=== PATIENT | female | born 2000 | race Caucasian/White ===

== ENCOUNTER 2021-09-11 12:57 | Emergency (ER) | payer OTHER ==
[~2021-09-11] VITALS: Ht 160 cm; Wt 63.7 kg
[2021-09-11] MEDS ORDERED: HYDROCO/APAP1 TA9 PO (15:49)
[2021-09-11 15:54] VITALS: BP 119/81
== END 2021-09-11 16:06 | disposition home or self-care (01) | DRG 125 ==
LOC: ED 12:57
DX: S00.12XA Contusion of left eyelid and periocular area, initial encounter (principal); S00.03XA Contusion of scalp, initial encounter; S16.1XXA Strain of muscle, fascia and tendon at neck level, initial encounter; S20.212A Contusion of left front wall of thorax, initial encounter; S40.022A Contusion of left upper arm, initial encounter; T14.8XXA Other injury of unspecified body region, initial encounter; Y04.2XXA Assault by strike against or bumped into by another person, initial encounter; Y92.410 Unspecified street and highway as the place of occurrence of the external cause

== ENCOUNTER 2021-10-31 17:27 | Emergency (ER) | payer MEDICAID ==
[2021-10-31] VITALS (12 sets, daily range): BP systolic 88–116; BP diastolic 47–78
[~2021-10-31] VITALS: Ht 160 cm; Wt 66.0 kg
[~2021-10-31 17:27] MED LIST: HYDROCO/APAP1 TA9 PO
[2021-10-31 18:11] LABS: HEMATOCRIT 37.6 % (37.0-47.0); HEMOGLOBIN 12.3 g/dl (12.0-16.0); IMMATURE GRANULOCYTES 0.1 % (0.0-5.0); MEAN CORPUSCULAR HGB 29.8 pG CALC (26.0-32.0); MEAN CORPUSCULAR HGB CONC 32.7 g/dL CAL (32.0-36.0); NEUT# 6.21 thou/uL (2.00-7.15); RED BLOOD COUNT 4.13 mill/uL (4.20-5.60); RED CELL DISTRI WIDTH 12.2 % (11.5-15.5)
[2021-10-31 18:14] LABS: URINE BILIRUBIN - DIPSTICK NEGATIVE (NEGATIVE); URINE BLOOD DIPSTICK LARGE (NEGATIVE); URINE COLOR YELLOW; URINE GLUCOSE - DIPSTICK NEGATIVE (NEGATIVE); URINE KETONE NEGATIVE (NEGATIVE); URINE LEUK ESTERASE NEGATIVE (NEGATIVE); URINE PROTEIN - DIPSTICK TRACE mg/dL (NEG-TRACE); URINE UROBILINOGEN - DIPSTICK 0.2 E.U./dL (0.2)
[2021-10-31 18:20] LABS: URINE NITRITE - DIPSTICK NEGATIVE (Negative)
[2021-10-31 18:31] LABS: URINE SQUAMOUS EPITHELIAL CELL RARE EPI/hpf (0-FEW); URINE WBC 0-2 WBC/hpf (0-5)
[2021-10-31 18:37] LABS: ALBUMIN 3.9 g/dL (3.2-5.0); ALKALINE PHOSPHATASE 73 u/l (38-126); ANION GAP 10 (6-22 (CALC)); BILIRUBIN, TOTAL 0.5 mg/dL (0.0-1.4); BUN 10 mg/dL (7-17); BUN/CREATININE RATIO 17 (12-20 (CALC)); CARBON DIOXIDE 24 mmol/l (22-30); CHLORIDE 105 mmol/l (95-108); CREATININE 0.6 mg/dL (0.5-1.0); GFR FOR AFR.AMER. > 60 ML/MIN (>=60 (CALC)); GFR OTHER RACES > 60 ML/MIN (>=60 (CALC)); LIPASE 28 u/l (23-300); POTASSIUM 3.6 mmol/l (3.5-5.1); SGOT/AST 19 u/l (14-36); SODIUM 136 mmol/l (137-146); TOTAL PROTEIN 6.7 g/dL (6.3-8.2)
[2021-10-31] MEDS ORDERED: ONDANSETRON4 MG PO (21:10)
== END 2021-10-31 22:07 | disposition home or self-care (01) ==
LOC: ED 17:27
PROVIDERS: Family Medicine
DX: A08.4 Viral intestinal infection, unspecified (principal)
CPT/HCPCS: Q9967

== ENCOUNTER 2021-11-14 16:34 | Emergency (ER) | payer MEDICAID ==
[~2021-11-14] VITALS: Ht 160 cm; Wt 68.1 kg
[~2021-11-14 16:34] MED LIST changes: +ONDANSETRON4 MG PO
[2021-11-14 16:42] VITALS: BP 114/76
[2021-11-14 16:45] VITALS: BP 120/83
[2021-11-14 17:00] VITALS: BP 109/76
[2021-11-14 17:16] VITALS: BP 56/42
[2021-11-14 17:22] VITALS: BP 112/60
[2021-11-14] MEDS ORDERED: TESSALON PERLE100 MG PO (17:27)
[2021-11-14] MEDS ORDERED: ONDANSETRON4 MG PO (17:27)
[2021-11-14 17:30] VITALS: BP 109/70
== END 2021-11-14 17:35 | disposition home or self-care (01) ==
LOC: ED 16:34
DX: J40 Bronchitis, not specified as acute or chronic (principal); Z20.822 Contact with and (suspected) exposure to COVID-19

== ENCOUNTER 2021-12-24 13:20 | Emergency (ER) | payer MEDICAID ==
[~2021-12-24] VITALS: Ht 160 cm; Wt 61.0 kg
[~2021-12-24 13:20] MED LIST changes: +TESSALON PERLE100 MG PO
[2021-12-24 13:29] VITALS: BP 113/69
[2021-12-24 13:41] LABS: URINE BILIRUBIN - DIPSTICK NEGATIVE (NEGATIVE); URINE BLOOD DIPSTICK TRACE-INTACT (NEGATIVE); URINE COLOR YELLOW; URINE GLUCOSE - DIPSTICK NEGATIVE (NEGATIVE); URINE KETONE NEGATIVE (NEGATIVE); URINE PROTEIN - DIPSTICK NEGATIVE (NEG-TRACE); URINE UROBILINOGEN - DIPSTICK 0.2 E.U./dL (0.2)
[2021-12-24 13:43] LABS: URINE LEUK ESTERASE SMALL (NEGATIVE); URINE NITRITE - DIPSTICK NEGATIVE (Negative)
[2021-12-24 13:46] VITALS: BP 88/63
[2021-12-24 13:53] LABS: URINE SQUAMOUS EPITHELIAL CELL FEW EPI/hpf (0-FEW)
[2021-12-24 14:01] VITALS: BP 120/85
[2021-12-24] MEDS ORDERED: DOXYCYCLINE100 MG PO ×2 (14:14→14:35)
[2021-12-24] MEDS ORDERED: METRONIDAZOLE500 MG PO ×2 (14:14→14:35)
[2021-12-24 14:15] VITALS: BP 110/84
[2021-12-24 14:30] VITALS: BP 125/86
== END 2021-12-24 14:39 | disposition home or self-care (01) ==
LOC: ED 13:20
PROVIDERS: Internal Medicine
DX: R82.90 Unspecified abnormal findings in urine (principal)

== ENCOUNTER 2022-04-06 17:27 | Emergency (ER) | payer OTHER, MEDICAID ==
[~2022-04-06] VITALS: Ht 160 cm; Wt 68.2 kg
[~2022-04-06 17:27] MED LIST changes: +DOXYCYCLINE100 MG PO; +METRONIDAZOLE500 MG PO
[2022-04-06 17:45] VITALS: BP 117/72
[2022-04-06 18:00] VITALS: BP 102/67
[2022-04-06 18:15] VITALS: BP 116/70
[2022-04-06 18:30] VITALS: BP 105/70
[2022-04-06] MEDS ORDERED: EC-NAPROXEN500 MG PO (18:35)
[2022-04-06] MEDS ORDERED: CYCLOBENZAPRINE10 MG PO (18:35)
[2022-04-06] MEDS ORDERED: FIORICET 50-3001 CAP PO (18:35)
[2022-04-06 18:45] VITALS: BP 110/66
[2022-04-06 18:58] VITALS: BP 110/66
== END 2022-04-06 18:58 | disposition home or self-care (01) | DRG 103 ==
LOC: ED 17:27
DX: R51.9 Headache, unspecified (principal); S13.4XXA Sprain of ligaments of cervical spine, initial encounter; V43.52XA Car driver injured in collision with other type car in traffic accident, initial encounter; M54.2 Cervicalgia

== ENCOUNTER 2022-04-10 21:00 | Emergency (ER) | payer MEDICAID ==
[~2022-04-10] VITALS: Ht 160 cm; Wt 68.0 kg
[~2022-04-10 21:00] MED LIST changes: +CYCLOBENZAPRINE10 MG PO; +EC-NAPROXEN500 MG PO; +FIORICET 50-3001 CAP PO
[2022-04-10 21:49] LABS: URINE BLOOD DIPSTICK NEGATIVE (NEGATIVE); URINE COLOR YELLOW; URINE GLUCOSE - DIPSTICK NEGATIVE (NEGATIVE); URINE KETONE TRACE mg/dL (NEGATIVE); URINE LEUK ESTERASE NEGATIVE (NEGATIVE); URINE PROTEIN - DIPSTICK 30 mg/dL (NEG-TRACE); URINE SPECIFIC GRAVITY >=1.030; URINE UROBILINOGEN - DIPSTICK 0.2 E.U./dL (0.2)
[2022-04-10 21:51] LABS: URINE BILIRUBIN - DIPSTICK SMALL (NEGATIVE); URINE NITRITE - DIPSTICK NEGATIVE (Negative); URINE RBC 0-2 RBC/hpf (0-5); URINE SQUAMOUS EPITHELIAL CELL FEW EPI/hpf (0-FEW); URINE WBC 0-2 WBC/hpf (0-5)
[2022-04-10] MEDS ORDERED: CLARITIN10 M2 PO (22:31)
[2022-04-10] MEDS ORDERED: AMOXICILLIN500 MG PO (22:31)
[2022-04-10] MEDS ORDERED: METRONIDAZOLE500 MG PO (22:47)
[2022-04-10] MEDS ORDERED: MONISTAT1 VA (22:47)
[2022-04-10 23:36] VITALS: BP 101/70
== END 2022-04-10 23:36 | disposition home or self-care (01) ==
LOC: ED 21:00
PROVIDERS: Emergency Medicine
DX: J02.9 Acute pharyngitis, unspecified (principal); Z20.2 Contact with and (suspected) exposure to infections with a predominantly sexual mode of transmission; Z20.822 Contact with and (suspected) exposure to COVID-19